=== PATIENT | male | born 2000 | race Caucasian/White ===

== ENCOUNTER 2020-03-11 19:18 | Emergency (ER) | payer OTHER, SELFPAY ==
[2020-03-11 19:19] VITALS: BP 136/72; PULSE 69; RESP 16; TEMP 36.6; O2SAT 99; BMI 21.0
--- NOTE | 2020-03-11 19:35 | EKG12_ITS ---
Test Reason : SOB Blood Pressure : / mmHG Vent. Rate : 064 BPM Atrial Rate : 064 BPM P-R Int : 142 ms QRS Dur : 110 ms QT Int : 394 ms P-R-T Axes : 055 071 058 degrees QTc Int : 406 ms Normal sinus rhythm Normal ECG Confirmed by HENRY FLOWERS, TRICE ([id number]), order editor DERIC PRASAD ([id number] on 03/14/2020 8:38:57 AM Referred By: JACQUI Confirmed By:TRICE FIGUEROA MD
--- NOTE | 2020-03-11 19:35 | ED.VIS.GEN ---
History of Present Illness Chief Complaint: Shortness of Breath Detail of Chief Complaint: Short of breath, fatigue, tingling in legs, palpitations Informant: Patient Onset: Days - 4 days, worse today Context: Gradual Onset Current Severity: Mild Maximum Severity: Moderate Narrative: Patient presents with multiple complaints. He reports over the past 4 days has had extreme fatigue. He said no fever or chills. He has felt short of breath. He denies chest pain or back pain. He states he had some slight tingling in his legs as well. He denies any change in diet. He has been taking some [id number] Mucinex cough and cold medicine. He does report having some palpitations today where he states he could see a pulsing sensation in his lower chest. Past Medical History - Allergies and Home Meds Allergies/Adverse Reactions: Allergies No Known Allergies Allergy (Verified 03/11/20 19:22) Primary Care Physician: Timoteo Flynn MD [Primary Care Provider] - Prior records reviewed: Yes Past Medical History: None Lives: With Family Smoking Status: Never smoker Review of Systems General: Denies: Chills, Fever Eyes: Denies: Visual changes - bilaterally ENT: Denies: Bilateral ear pain Cardiovascular: Reports: Palpitations. Denies: Chest pain Respiratory: Reports: Dyspnea. Denies: Cough Gastrointestinal: Denies: Abdominal pain, Nausea, Vomiting, Diarrhea Genitourinary: Denies: Dysuria Musculoskeletal: Denies: Extremity Pain Skin: Denies: Rash Neurological: Reports: Weakness, Parasthesia Psych: Denies: Depression Hematologic: Denies: Easy bruising, Easy bleeding Allergy: Denies: Uticaria Physical Exam Vital Signs/Narrative: Vital Signs Temp Pulse Resp BP Pulse Ox 03/11/20 19:19 97.8 F 69 16 136/72 H 99 Inital Vital Signs reviewed: Yes General: Well nourished, Well developed Head: Normocephalic ENT: Moist mucous membranes Neck: Supple Cardiovascular: Regular rate, Regular rhythm Respiratory: No distress, CTA bilaterally Abdomen: Soft, Nontender Back: Nontender Extremities: Nontender Skin: Normal color, No rash Neurological: Alert, Oriented x3, Normal Strength, Normal Sensation Psychological: Normal affect Diagnostic/Tx/Re-eval Impressions Chest X-Ray 03/11/20 19:55 IMPRESSION: Possible small airways disease Electronically Signed: Patrice Malagon MD at 20:13 EDT , Service support , 03/11/20 19:55 Chest 1 View (Portable) [RAD] Stat Laboratory Results 03/11/20 03/11/20 19:35 19:35 WBC 7.0 RBC 5.18 Hgb 15.6 Hct 46.3 MCV 89.4 MCH 30.1 MCHC 33.7 RDW Std Deviation 38.4 RDW Coeff of Annabel 11.9 Plt Count 205 MPV 10.5 Immature Gran % (Auto) 0.100 Neut % (Auto) 53.8 Lymph % (Auto) 37.1 Buchanan % (Auto) 7.1 Eos % (Auto) 1.6 Baso % (Auto) 0.3 Absolute Neuts (auto) 3.8 Absolute Lymphs (auto) 2.61 Nucleated RBC % 0 Sodium 141 Potassium 3.7 Chloride 107 Carbon Dioxide 27.0 Anion Gap 7 BUN 15 Creatinine 0.82 Estim Creat Clear Calc 152.68 Est GFR (MDRD) Af Amer 155 Est GFR (MDRD) Non-Af 128 BUN/Creatinine Ratio 18.3 Glucose 90 Calcium 9.3 - EKG Initial EKG Interpretation: Sinus Rhythm - Sinus at 64 with no acute ischemia. - Medical Decision Making Patient is observed on information systems consultant. No arrhythmias noted. Chest x-ray and laboratory evaluation is reviewed with him. At this time I do not see any acute abnormalities. He may have a viral syndrome. We did discuss the possibility of Covid and I did advise him that I cannot test him for that at this time. He voices understanding and agreement. Treatment will still be self-monitoring at home. ED Disposition - Plan for ED Patient: Disposition: Home or Assisted Living Diagnosis: Viral syndrome Instructions: ED Viral Syndrome Referrals: Timoteo Flynn MD [Primary Care Provider] - 1 Week if not improving
--- NOTE | 2020-03-11 19:55 | RAD_ITS ---
STUDY: X-RAY CHEST REASON FOR EXAM: Male, 19 years old. PRESENTS WITH MULTIPLE VAGUE COMPLAINTS, and quot;CAN''T CATCH MY BREATH and quot;, DIZZINESS, N/T IN LEGS TECHNIQUE: Single frontal view of the chest. COMPARISON: None. FINDINGS: Lungs are hyper aerated. The lungs are clear and expanded. There is no demonstrated pleural abnormality. Normal size heart. Normal mediastinum and carlos. Normal visualized pulmonary arteries. Normal visualized aortic arch and descending thoracic aorta. Normal visualized thoracic spine. Normal visualized ribs, clavicles, and shoulders. There is no demonstrated abnormality of the visualized soft tissue structures of the upper abdomen. RAD/Chest 1 View (Portable) IMPRESSION: Possible small airways disease Electronically Signed: Patrice Malagon MD at 20:13 EDT , Service support ,
[2020-03-11 20:13] LABS: Absolute Lymphocyte Count 2.61 X10^3/uL (0.83-4.51); Absolute Neutrophil Count 3.8 X10^3/uL (2.0-7.7); Basophil# 0.02 X10^3/uL; Basophil% 0.3 % (0-1); Eosinophil# 0.11 X10^3/uL; Eosinophils% 1.6 % (0-5); Hematocrit 46.3 % (40-54); Hemoglobin 15.6 g/dL (13.0-16.5); Lymphocyte # 2.61 X10^3/ul (4.0); Lymphocyte % 37.1 % (19-41); Mean Corp Hgb Conc 33.7 g/dL (32-36); Mean Corpuscular Hgb 30.1 pg (27.0-32.0); Mean Corpuscular Volume 89.4 fL (80-94); Mean Platelet Vol. 10.5 fl (6.2-12.0); Monocyte% 7.1 % (0-10); NRBC Flagged by Analyzer 0 % (0-5); Neutrophil # 3.78 X10^3/uL (2.7-7.7); Neutrophil % 53.8 % (47-70); Platelet Count 205 K/mm3 (150-450); RBC Distribution Width CV 11.9 % (11.6-14.6); RBC Distribution Width SD 38.4 fl (35.1-43.9); Red Blood Count 5.18 M/mm3 (4.6-6.2)
[2020-03-11 20:21] LABS: Anion Gap 7 (5-15); BUN 15 mg/dL (7-18); BUN/Creat Ratio 18.3 RATIO (10-20); Calcium,Total 9.3 mg/dL (8.5-10.1); Chloride 107 mmol/L (98-107); Creatinine, Serum 0.82 mg/dL (0.70-1.30); EST Glomerular Filtration Rate 128 mL/min (>60); Est Glom Filt Rate - Afr Amer 155 mL/min (>60); Estimated Creatinine Clearance 152.68 ml/min; Glucose 90 mg/dL (74-106); Potassium 3.7 mmol/L (3.5-5.1); Sodium Level 141 mmol/L (136-145)
[2020-03-11 20:46] VITALS: BP 144/83; PULSE 67; RESP 16; O2SAT 96
== END 2020-03-11 20:49 | disposition home or self-care (01) ==
PROVIDERS: Emergency Provider Emergency Medicine; PCP Pediatrics
DX: B34.9 Viral infection, unspecified (principal)
CPT/HCPCS: 71045; 80048; 85025; 93005; 99284; A4216

== ENCOUNTER → 2020-06-19 | Outpatient (CLI) | payer OTHER, SELFPAY | END | disposition home or self-care (01) | LOC: MTDU 10:25 | PROVIDERS: PCP Pediatrics | DX: Z20.828 Contact with and (suspected) exposure to other viral communicable diseases (principal) | CPT/HCPCS: 87635; G2023; U0003 ==